=== PATIENT | male | born 1990 | race Caucasian/White ===

== ENCOUNTER 2025-03-03 01:16 | Emergency (ER) | payer SELFPAY ==
[2025-03-03 02:33] LABS: PLATELET COUNT, AUTOMATED 385 10^3/uL (150-450)
[2025-03-03 02:56] LABS: AMPHETAMINES LEVEL URINE NEGATIVE (NEGATIVE); BARBITURATES URINE NEGATIVE (NEGATIVE)
[2025-03-03 02:57] LABS: BENZODIAZEPINES URINE NEGATIVE (NEGATIVE); COCAINE METABOLITE URINE NEGATIVE (NEGATIVE); METHADONE URINE NEGATIVE (NEGATIVE); OPIATES URINE NEGATIVE (NEGATIVE); PHENCYCLIDINE URINE NEGATIVE (NEGATIVE)
[2025-03-03 02:59] LABS: CANNABINOIDS URINE POSITIVE (NEGATIVE); ETHYL ALCOHOL (ETHANOL) 0.230 % (0.000-0.010)
[2025-03-03 03:00] LABS: ALT/SGPT 12 U/L (7.0-40); AST/SGOT 17 U/L (<34); CALCIUM LEVEL 8.6 MG/DL (8.5-10.1); CARBON DIOXIDE LEVEL 27 MMOL/L (20-31); CHLORIDE LEVEL 107 MMOL/L (98-107); CREATININE FOR GFR 0.71 MG/DL (0.70-1.30); GLOMERULAR FILTRATION RATE > 90.0 (>60); POTASSIUM SERUM 3.9 MMOL/L (3.5-5.1); SALICYLATE LEVEL < 3.0 MG/DL (<30); SODIUM LEVEL 144 MMOL/L (136-145)
[2025-03-03] MEDS ORDERED: HOME MED LIST COMPLETE! XX SCH (04:45)
[2025-03-03 13:42] VITALS: BP 131/81; TEMP 97; O2SAT 99
== END 2025-03-03 13:56 | disposition home or self-care (01) ==
LOC: M ED 01:16
DX: F10.120 Alcohol abuse with intoxication, uncomplicated (principal)